=== PATIENT | male | born 1970 | race Caucasian/White ===

== ENCOUNTER 2017-07-08 10:18 | Emergency (ER) | payer OTHER ==
[2017-07-08] MEDS ORDERED: fentaNYL 100 MCG/2 ML INJ IVP ONE (10:35)
[2017-07-08] MEDS ORDERED: NS 1,000 ML IV ONE ×2 (10:35→10:49)
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
[2017-07-08 10:49] LABS: PLATELET COUNT 253 10^3/uL (150-400)
[2017-07-08] MEDS ORDERED: IOPAMIDOL (ISOVUE-300) 100 ML BTL ONE (10:56)
[2017-07-08] MEDS ORDERED: MAG HYDROX/AL HYDROX/SIMETH 30 ML UDCUP PO ONE (11:50)
[2017-07-08] MEDS ORDERED: LIDOCAINE 2% VISCOUS 15 ML UDCUP PO ONE (11:50)
[2017-07-08] MEDS ORDERED: HYOSCYAMINE SULFATE 0.125 MG TAB PO ONE (11:50)
[2017-07-08 12:21] VITALS: BP 142/90
== END 2017-07-08 12:21 | disposition home or self-care (01) ==
DX: R10.13 Epigastric pain (principal); E86.9 Volume depletion, unspecified; F17.210 Nicotine dependence, cigarettes, uncomplicated
CPT/HCPCS: 74177; 96361; 96374; 99285; J3010; Q9967; 82947-QW